=== PATIENT | female | born 1955 | race American Indian/Alaskan Native ===

== ENCOUNTER 2017-07-23 05:25 | Day surgery (SDC) | payer MEDICAID, OTHER ==
[2017-07-23] MEDS ORDERED: fentaNYL 100 MCG/2 ML SDV IV ONE (05:26)
[2017-07-23] MEDS ORDERED: Midazolam 1 MG/ML 2 ML SDV IV ONE (05:26)
[2017-07-23] MEDS ORDERED: Sodium Chloride 0.9% 10 ML Syringe FLUSH PRN (06:00)
[2017-07-23] MEDS: Dextrose 5%-0.45% NaCl 1,000 ML IV SCH (06:04)
[2017-07-23] MEDS ORDERED: Midazolam 1 MG/ML 2 ML SDV ONE (06:14)
[2017-07-23] MEDS ORDERED: fentaNYL 100 MCG/2 ML SDV ONE (06:14)
[2017-07-23] MEDS: fentaNYL 100 MCG/2 ML SDV IV ONE (06:33)
[2017-07-23] MEDS: Midazolam 1 MG/ML 2 ML SDV IV ONE ×2 (06:34)
[2017-07-23 10:51] VITALS: BP 99/65
--- NOTE | 2017-07-23 12:01 | OR ---
DATE: 07/23/2017 PROCEDURE: Esophagogastroduodenoscopy and multiple pinch biopsies. INSTRUMENT USED: GIF-H180 Olympus video panendoscope. PREMEDICATIONS: No ora topical anesthesia used. Fentanyl 100 mcg intravenous, Versed 2 mg intravenous. Nasal O2 cannula. The procedure was done under pulse oximetry, BP recording, and nurse rn bsn. INDICATION: The patient with longstanding upper abdominal pain, unexplained, and not responsive to medical measures. Esophagogastroduodenoscopy is performed for detection of any active erosive lesions, Slater esophagus and/or malignancy also under consideration, H. pylori status to be determined, endoscopic hemostasis therapy if needed. DESCRIPTION OF PROCEDURE: The scope was passed with ease. Adequate visualization of the esophagus was made from proximal to distal areas. No upper esophageal lesions identified. No distal esophageal stricture. No uphill or downhill esophageal varices. No Jamila-Elkins tear. No evidence of erosive esophagitis by [place] criteria. No esophageal polyp or tumor mass identified. Z-line was seen at around 39 cm distal to the oral verge, configuration consistent with grade 1 by ZAP classification. No proximal gastric varices noted. Gastric fundus examination by retroflexion showed no polypoid lesions. No gastric ulcer, malignant mass, or vascular ectasia identified. Duodenal bulb showed no ulcer. Visualized second part of the duodenum was unremarkable. Multiple pinch biopsies were taken from the gastric antrum and proximal body and sent for PyloriTek test for H. pylori, and if negative in an hour, the tissue is to be sent for histopathology. No bleeding was noted from any of the visualized areas at the completion of examination. IMPRESSION: Normal study. The patient tolerated the procedure well. [facility] /[id number]
--- NOTE | 2017-07-23 12:22 | LETTER ---
07/23/2017 Hanna Echevarria NP [facility] [address] [place] [address] RE: NASRIN TANNER : 1955 Dear Ms Echevarria: Nasrindebora Montero Tanner had esophagogastroduodenoscopy done this morning, and she tolerated the procedure well. I herewith send a copy of the endoscopy note and photographs for your review. Thank you Sincerely, [facility] /[id number]
== END 2017-07-23 09:15 | disposition home or self-care (01) ==
LOC: DL.ENDO 05:25
PROVIDERS: ATTEND Internal Medicine Gastroenterology
DX: K31.89 Other diseases of stomach and duodenum (principal); K29.70 Gastritis, unspecified, without bleeding
CPT/HCPCS: 43239; 87077; J2250; J3010; J7042

== ENCOUNTER 2021-07-22 05:29 | Day surgery (SDC) | payer MEDICARE, OTHER ==
[2021-07-22] MEDS ORDERED: fentaNYL 100 MCG/2 ML SDV IV ONE ×3 (05:30→06:30)
[2021-07-22] MEDS ORDERED: Midazolam 1 MG/ML 2 ML SDV IV ONE ×3 (05:30→06:31)
[2021-07-22] MEDS ORDERED: Dextrose 5%-0.45% NaCl 1,000 ML IV SCH (05:45)
[2021-07-22] MEDS ORDERED: Midazolam 1 MG/ML 2 ML SDV ONE (06:09)
[2021-07-22] MEDS ORDERED: fentaNYL 100 MCG/2 ML SDV ONE (06:09)
[2021-07-22 08:47] VITALS: BP 91/69; PULSE 84
== END 2021-07-22 08:55 | disposition home or self-care (01) ==
LOC: DL.ENDO 05:29
PROVIDERS: ATTEND Internal Medicine Gastroenterology
DX: K22.2 Esophageal obstruction (principal); J44.9 Chronic obstructive pulmonary disease, unspecified; K21.9 Gastro-esophageal reflux disease without esophagitis; E03.9 Hypothyroidism, unspecified; N60.19 Diffuse cystic mastopathy of unspecified breast; F17.200 Nicotine dependence, unspecified, uncomplicated; Z98.890 Other specified postprocedural states; Z01.812 Encounter for preprocedural laboratory examination; Z20.822 Contact with and (suspected) exposure to COVID-19
CPT/HCPCS: 87077; J2250; J3010; J7042; U0002

== ENCOUNTER 2021-11-04 05:34 | Day surgery (SDC) | payer MEDICARE, OTHER ==
[~2021-11-04 05:34] MED LIST: Dextrose 5%-0.45% NaCl 1,000 ML IV SCH
[2021-11-04] MEDS ORDERED: Midazolam 1 MG/ML 2 ML SDV IV ONE ×5 (05:35→06:38)
[2021-11-04] MEDS ORDERED: fentaNYL 100 MCG/2 ML SDV IV ONE ×3 (05:35→06:28)
[2021-11-04] MEDS ORDERED: Midazolam 1 MG/ML 2 ML SDV ONE (06:02)
[2021-11-04] MEDS ORDERED: fentaNYL 100 MCG/2 ML SDV ONE (06:02)
[2021-11-04] MEDS ORDERED: Sodium Chloride 0.9% 1,000 ML IV SCH ×2 (06:45→08:00)
[2021-11-04 11:17] VITALS: PULSE 96
[2021-11-04 11:18] VITALS: BP 102/63
== END 2021-11-04 11:10 | disposition home or self-care (01) ==
LOC: DL.ENDO 05:34
PROVIDERS: ATTEND Internal Medicine Gastroenterology
DX: Z12.11 Encounter for screening for malignant neoplasm of colon (principal); K57.30 Diverticulosis of large intestine without perforation or abscess without bleeding; Z01.812 Encounter for preprocedural laboratory examination; Z20.822 Contact with and (suspected) exposure to COVID-19; Z86.010 Personal history of colon polyps
CPT/HCPCS: G0105; J2250; J3010; J7030; J7042; U0002

== ENCOUNTER 2023-12-13 09:16 | Inpatient (IN) | payer MEDICARE, OTHER ==
[2023-12-13 09:43] LABS: BASOPHILS PERCENT AUTO 0.1 % (0.0-1.0); EOSINOPHILS PERCENT AUTO 0.1 % (1.0-3.0); HEMATOCRIT 34.8 % (37.0-47.0); HEMOGLOBIN 11.6 g/dL (12.0-16.0); LYMPHOCYTES PERCENT AUTO 15.4 % (20.5-50.1); MEAN CORPUSCULAR HEMOGLOBIN 39.5 pg (27.0-34.0); MEAN CORPUSCULAR HGB CONC 33.3 g/dL (33.0-35.0); MEAN CORPUSCULAR VOLUME 118.4 fL (80-100); MONOCYTES PERCENT AUTO 11.4 % (2-8); PLATELET COUNT,PLT 341 10^3/uL (150-450); RED BLOOD CELL COUNT 2.94 10^6/uL (4.2-5.4); WHITE BLOOD CELL COUNT,WBC 9.8 10^3/uL (5.0-10.0)
[2023-12-13] MEDS: methylPREDNISolone Sodium Succinate 125 MG/2 ML SDV IVPUSH ONE (09:58)
[2023-12-13] MEDS: Albuterol/Ipratropium 3.0-0.5 MG/3 ML Neb Soln NEB ONE (09:58)
[2023-12-13] MEDS: Sodium Chloride 0.9% 1,000 ML IV ONE ×2 (09:58→12:36)
[2023-12-13 10:05] LABS: ALBUMIN 3.3 g/dL (3.4-5.0); ANION GAP 13.9 mEq/L (7-13); BILIRUBIN TOTAL 0.3 mg/dL (0.2-1.0); BUN/CREATININE RATIO 10.8 (No establ ref range); CALCIUM 7.9 mg/dL (8.5-10.1); CREATININE 0.65 mg/dL (0.55-1.02); EST CRCL DRUG DOSING (CG) 78.32 mL/min; LACTIC ACID 1.5 mmol/L (0.4-2.0); POTASSIUM,K 3.9 mmol/L (3.5-5.1); PROTEIN TOTAL,TP 7.6 g/dL (6.4-8.2)
[2023-12-13 10:09] LABS: A/G RATIO 0.77
[2023-12-13] MEDS: cefTRIAXone 1 GM Vial IVPUSH ONE (10:44)
[2023-12-13] MEDS: Azithromycin 500 MG in Sodium Chloride 0.9% 250 ML IV ONE (10:44)
[2023-12-13] MEDS: Metoclopramide 10 MG/2 ML SDV IVPUSH ONE (11:15)
[2023-12-13 11:23] LABS: APPEARANCE,URINE CLOUDY (CLEAR); BILIRUBIN,URINE NEGATIVE (NEGATIVE); COLOR,URINE YELLOW (YELLOW); GLUCOSE,URINE NEGATIVE (NEGATIVE); KETONES,URINE 40 (NEGATIVE); LEUKOCYTE ESTERASE,URINE NEGATIVE (NEGATIVE); NITRITE,URINE POSITIVE (NEGATIVE); OCCULT BLOOD,URINE TRACE-INTACT (NEGATIVE); PROTEIN,URINE 100 (NEGATIVE)
[2023-12-13 11:41] LABS: BICARBONATE,VENOUS 27 mmol/l (19-25); O2 DELIVERY DEVICE NASAL CANNULA; PCO2 VENOUS 53 mmHg (41-51); PH,VENOUS 7.33 (7.31-7.41); PO2 VENOUS 161 mmHg (35-42)
[2023-12-13 11:59] LABS: BACTERIA,URINE MANY /HPF (0-FEW/HPF); EPITHELIAL CELLS,URINE MODERATE /HPF (NOT SEEN)
[2023-12-13 12:00] LABS: RBC,URINE 0-5 /HPF (0-5)
[2023-12-13] MEDS: Iopamidol 755 Mg/ML 100 ML Bottle IVPUSH ONE (12:05)
[2023-12-13] MEDS ORDERED: Zolpidem 5 MG Tab PO PRN (16:53)
[2023-12-13] MEDS ORDERED: Magnesium Hydroxide 400 MG/5 ML Susp 30 ML Cup PO PRN (16:53)
[2023-12-13] MEDS ORDERED: Sennosides/Docusate Sodium 50-8.6 MG Tab PO PRN (16:53)
[2023-12-13] MEDS ORDERED: Sodium Chloride 0.9% 10 ML Syringe FLUSH PRN (16:53)
[2023-12-13] MEDS ORDERED: Morphine 2 MG/ML SYRINGE IVPUSH PRN ×2 (16:53→19:24)
[2023-12-13] MEDS ORDERED: Naloxone 2 MG/2 ML Syringe IVPUSH PRN (16:53)
[2023-12-13] MEDS ORDERED: Acetaminophen 325 MG Tab PO PRN (16:53)
[2023-12-13] MEDS ORDERED: Polyethylene Glycol 3350 Powder 17 GM Packet PO PRN (16:53)
[2023-12-13] MEDS ORDERED: hydrALAZINE 20 MG/ML SDV IVPUSH PRN (16:57)
[2023-12-13] MEDS ORDERED: Metoprolol Tartrate 5 MG/5 ML SDV IVPUSH PRN (16:57)
[2023-12-13] MEDS ORDERED: guaiFENesin/Dextromethorphan 100-10 MG/5 ML Soln 5 ML Cup PO PRN (17:01)
[2023-12-13] MEDS ORDERED: 50% Dextrose in Water 50 ML Syringe IVPUSH PRN (17:03)
[2023-12-13] MEDS ORDERED: Glucagon,Human Recombinant 1 MG Vial IM PRN (17:03)
[2023-12-13] MEDS ORDERED: Loperamide 2 MG Cap PO PRN (17:05)
[2023-12-13] MEDS ORDERED: Naloxone 2 MG/2 ML Syringe IV PRN (17:05)
[2023-12-13] MEDS: Cefepime 2 GM Vial IVPUSH ONE (18:04)
[2023-12-13] MEDS: Magnesium Oxide 400 MG Tab PO SCH (18:11)
[2023-12-13] MEDS: Albuterol/Ipratropium 3.0-0.5 MG/3 ML Neb Soln NEB SCH (18:11)
[2023-12-13] MEDS: guaiFENesin 600 MG Tab.ER PO ONE (18:12)
[2023-12-13] MEDS: Magnesium Sulfate/D5W 1 GM/100 ML BAG IV ONE (18:16)
[2023-12-13] MEDS: Formoterol/Mometasone 100-5 MCG 8.8 GM Inhaler INH PRN (18:42)
[2023-12-13] MEDS: Morphine 2 MG/ML SYRINGE IVPUSH ONE (19:40)
[2023-12-13] MEDS: VANCOmycin 1.5 GM/300 ML 1.5 GM in Premix Bag 1 BAG IV ONE (20:37)
[2023-12-13] MEDS: Aminophylline 500 MG in Sodium Chloride 0.9% 500 ML IV SCH (20:54)
[2023-12-13] MEDS: guaiFENesin 600 MG Tab.ER PO SCH (21:02)
[2023-12-13] MEDS: Saccharomyces Boulardii (Probiotic) 250 MG Cap PO SCH (21:02)
[2023-12-13] MEDS: Sodium Chloride 0.9% 10 ML Syringe FLUSH SCH (21:03)
[2023-12-14] MEDS: Morphine 2 MG/ML SYRINGE IVPUSH PRN ×2 (00:06→23:36)
[2023-12-14] MEDS: Cefepime 1 GM Vial IVPUSH SCH (01:15)
[2023-12-14] MEDS: Prochlorperazine 5 MG Tab PO PRN (03:36)
[2023-12-14] MEDS: Tiotropium Bromide 4 GM Inhalation Spray (2.5mcg/1 dose; 10 doses) INH SCH (05:36)
[2023-12-14] MEDS: Midodrine 5 MG Tab PO ONE (06:32)
[2023-12-14 06:37] LABS: BASOPHILS PERCENT AUTO 0.1 % (0.0-1.0); HEMATOCRIT 31.7 % (37.0-47.0); HEMOGLOBIN 10.3 g/dL (12.0-16.0); LYMPHOCYTES PERCENT AUTO 19.9 % (20.5-50.1); MEAN CORPUSCULAR HEMOGLOBIN 38.9 pg (27.0-34.0); MEAN CORPUSCULAR HGB CONC 32.5 g/dL (33.0-35.0); MEAN CORPUSCULAR VOLUME 119.6 fL (80-100); MONOCYTES PERCENT AUTO 13.3 % (2-8); NEUTROPHILS PERCENT AUTO 66.7 % (42.2-75.2); PLATELET COUNT,PLT 299 10^3/uL (150-450); RED BLOOD CELL COUNT 2.65 10^6/uL (4.2-5.4); WHITE BLOOD CELL COUNT,WBC 7.8 10^3/uL (5.0-10.0)
[2023-12-14 07:09] LABS: ALBUMIN 3.1 g/dL (3.4-5.0); ANION GAP 12.8 mEq/L (7-13); BILIRUBIN TOTAL 0.2 mg/dL (0.2-1.0); BUN/CREATININE RATIO 11.1 (No establ ref range); C-REACTIVE PROTEIN 8.78 ng/dL (<=0.50); CALCIUM 7.7 mg/dL (8.5-10.1); CREATININE 0.45 mg/dL (0.55-1.02); EST CRCL DRUG DOSING (CG) 113.12 mL/min; MAGNESIUM 2.3 mg/dL (1.8-2.4); POTASSIUM,K 3.8 mmol/L (3.5-5.1); PROTEIN TOTAL,TP 7.4 g/dL (6.4-8.2)
[2023-12-14 07:23] LABS: A/G RATIO 0.72
[2023-12-14] MEDS: Magnesium Sulfate/Water 2 GM in Premix Bag 1 BAG IV ONE ×2 (07:49→10:36)
[2023-12-14] MEDS: methylPREDNISolone Sodium Succinate 125 MG/2 ML SDV IVPUSH SCH ×2 (07:49→08:45)
[2023-12-14] MEDS: Aspirin 81 MG Tab.EC PO SCH (08:50)
[2023-12-14] MEDS: Levothyroxine 100 MCG Tab PO SCH (08:51)
[2023-12-14] MEDS: Cholecalciferol (Vitamin D3) 25 MCG Tab PO SCH (08:51)
[2023-12-14] MEDS: Insulin Lispro 100 Units/ML 3 ML Vial SUBCUT SCH (08:54)
[2023-12-14] MEDS ORDERED: Pantoprazole 40 MG Tab.CR PO SCH ×2 (09:00)
[2023-12-14] MEDS: Acetaminophen/HYDROcodone 325-5 MG Tab PO PRN (10:22)
[2023-12-14] MEDS: Lactated Ringers 1,000 ML IV SCH (12:55)
[2023-12-14] MEDS: Ondansetron 4 MG/2 ML SDV IVPUSH PRN (12:57)
[2023-12-14] MEDS: Pantoprazole 40 MG Tab.CR PO SCH (17:46)
[2023-12-14] MEDS: Midodrine 5 MG Tab PO SCH (18:51)
[2023-12-14] MEDS ORDERED: OLANZapine 5 MG Tab PO SCH (21:00)
[2023-12-15 06:57] LABS: O2 DELIVERY DEVICE NASAL CANNULA
[2023-12-15 07:22] LABS: PCO2 VENOUS 69 mmHg (41-51)
[2023-12-15 07:23] LABS: BASE EXCESS VENOUS 5.7 mmol/l ((-2)-(+3)); BICARBONATE,VENOUS 33 mmol/l (19-25); O2 SATURATION VENOUS 96.4 % (60-80); PO2 VENOUS 79 mmHg (35-42)
[2023-12-15 07:26] LABS: HEMATOCRIT 29.8 % (37.0-47.0); HEMOGLOBIN 9.6 g/dL (12.0-16.0); MEAN CORPUSCULAR HEMOGLOBIN 38.4 pg (27.0-34.0); WHITE BLOOD CELL COUNT,WBC 5.1 10^3/uL (5.0-10.0)
[2023-12-15 07:27] LABS: LYMPHOCYTES PERCENT AUTO 4.7 % (20.5-50.1); MEAN CORPUSCULAR HGB CONC 32.2 g/dL (33.0-35.0); MEAN CORPUSCULAR VOLUME 119.2 fL (80-100); MONOCYTES PERCENT AUTO 4.3 % (2-8); PLATELET COUNT,PLT 281 10^3/uL (150-450)
[2023-12-15 08:00] LABS: ANION GAP 9.9 mEq/L (7-13); POTASSIUM,K 2.9 mmol/L (3.5-5.1)
[2023-12-15 08:01] LABS: A/G RATIO 0.74; ALBUMIN 2.9 g/dL (3.4-5.0); BILIRUBIN TOTAL 0.2 mg/dL (0.2-1.0); BUN/CREATININE RATIO 10.9 (No establ ref range); C-REACTIVE PROTEIN 3.79 ng/dL (<=0.50); CALCIUM 7.2 mg/dL (8.5-10.1); CREATININE 0.46 mg/dL (0.55-1.02); EST CRCL DRUG DOSING (CG) 110.66 mL/min; MAGNESIUM 2.3 mg/dL (1.8-2.4); PROTEIN TOTAL,TP 6.8 g/dL (6.4-8.2)
[2023-12-15] MEDS: Potassium Chloride 10 MEQ Tab.ER PO SCH (09:11)
[2023-12-15] MEDS: Midodrine 5 MG Tab PO SCH (09:12)
[2023-12-15] MEDS: Sodium Chloride 0.9% 1,000 ML IV SCH (11:23)
[2023-12-15] MEDS: Morphine 15 MG Tab.ER PO ONE (11:37)
[2023-12-15] MEDS ORDERED: Ondansetron 4 MG/2 ML SDV IVPUSH PRN (17:08)
[2023-12-15] MEDS ORDERED: diphenhydrAMINE 25 MG Tab PO PRN (17:08)
[2023-12-15] MEDS ORDERED: diphenhydrAMINE 50 MG/ML SDV IVPUSH PRN (17:08)
[2023-12-15] MEDS ORDERED: Naloxone 2 MG/2 ML Syringe IVPUSH PRN (17:08)
[2023-12-15] MEDS: Scopalamine 1mg/3day Transdermal Patch TOP ONE (17:21)
[2023-12-15] MEDS: Metoclopramide 10 MG/2 ML SDV IVPUSH PRN (17:21)
[2023-12-15] MEDS: fentaNYL Citrate/PF 1,500 MCG/30 ML PCA Vial IV SCH (17:48)
[2023-12-15 20:16] VITALS: BP 94/62; PULSE 94
[2023-12-15] MEDS ORDERED: Morphine 15 MG Tab.ER PO SCH (21:00)
[2023-12-15] MEDS: LORazepam 2 MG/ML SDV IVPUSH PRN (21:48)
[2023-12-16] MEDS: Morphine 10 MG/ML Syringe IVPUSH PRN (08:18)
[2023-12-16] MEDS: fentaNYL 2,500 MCG in Sodium Chloride 0.9% 200 ML IV SCH (09:09)
[2023-12-16] MEDS: fentaNYL 12 MCG/HR Transdermal Patch TOP SCH (09:21)
[2023-12-16] MEDS: Atropine 1% Ophth Soln 5 ML Bottle SL PRN (11:28)
[2023-12-16] MEDS: LORazepam 2 MG/ML SDV IVPUSH PRN (11:34)
== END 2023-12-16 12:53 | disposition expired | DRG 871 ==
LOC: DL.ED 09:16 → DL.MS 13:46 → DL.ED 15:00 → DL.MS 12-15 17:22
PROVIDERS: ADMIT Internal Medicine; ATTEND Internal Medicine
DX: A41.9 Sepsis, unspecified organism (principal); A41.51 Sepsis due to Escherichia coli [E. coli]; J18.9 Pneumonia, unspecified organism; J96.21 Acute and chronic respiratory failure with hypoxia; J44.1 Chronic obstructive pulmonary disease with (acute) exacerbation; E87.1 Hypo-osmolality and hyponatremia; R79.1 Abnormal coagulation profile; N39.0 Urinary tract infection, site not specified; J44.0 Chronic obstructive pulmonary disease with (acute) lower respiratory infection; D84.821 Immunodeficiency due to drugs; C34.90 Malignant neoplasm of unspecified part of unspecified bronchus or lung; Z66 Do not resuscitate; Z51.5 Encounter for palliative care; E78.5 Hyperlipidemia, unspecified; I10 Essential (primary) hypertension; K21.9 Gastro-esophageal reflux disease without esophagitis; M19.90 Unspecified osteoarthritis, unspecified site; E03.9 Hypothyroidism, unspecified; G62.9 Polyneuropathy, unspecified; D50.9 Iron deficiency anemia, unspecified; H40.9 Unspecified glaucoma; R73.9 Hyperglycemia, unspecified; T38.0X5A Adverse effect of glucocorticoids and synthetic analogues, initial encounter; E87.6 Hypokalemia; E87.8 Other disorders of electrolyte and fluid balance, not elsewhere classified; E88.09 Other disorders of plasma-protein metabolism, not elsewhere classified; I95.9 Hypotension, unspecified; G89.3 Neoplasm related pain (acute) (chronic); E86.0 Dehydration; F17.210 Nicotine dependence, cigarettes, uncomplicated; Z86.010 Personal history of colon polyps; Z88.5 Allergy status to narcotic agent; Z88.6 Allergy status to analgesic agent; Z88.8 Allergy status to other drugs, medicaments and biological substances; Z99.81 Dependence on supplemental oxygen; Z90.2 Acquired absence of lung [part of]; Z79.82 Long term (current) use of aspirin; Z79.890 Hormone replacement therapy; Z79.899 Other long term (current) drug therapy; Z90.710 Acquired absence of both cervix and uterus; Z90.89 Acquired absence of other organs; Z98.890 Other specified postprocedural states; Z74.01 Bed confinement status
CPT/HCPCS: 36415; 71045; 71275; 80053; 81001; 82803; 83605; 83735; 84484 ×2; 85025; 85379; 87040 ×2; 87086; 87088; 87186; 87804 ×2; 93005; 93010; 96361; 96365; 96375; 99285 ×2; J0456; J0696; J2765; J2919; J7030 ×2; J7050; Q9967; U0002; 80202; 82947; 86140; 94640; 97161-GP; A9270-GY; J0280; J0692; J1815-GY; J2060; J2270; J2405; J3010; J3370; J3475; J3490; J7040; J7120; J7620-GY; Q0164